=== PATIENT | female | born 1970 | race Caucasian/White ===

== ENCOUNTER 2019-01-09 08:05 | Day surgery (SDC) | payer OTHER ==
[2019-01-02 14:11] VITALS: BMI 26.5
--- NOTE | 2019-01-09 07:34 | OP ---
Operative Note - Note: Operative Date: 01/09/19 Pre-Operative Diagnosis: Left shoulder pain Operation: Left shoulder manipulation under anesthesia Post-Operative Diagnosis: Same as Pre-op Surgeon: Dylon Kraft Sales Representatives: Peggy Iraheta Anesthesia: Fractional Operative Report Dictated: Yes
[2019-01-09] MEDS ORDERED: MIDAZOLAM HCL 2 MG/2 ML SINGLE DOSE VIAL ONE (10:04)
[2019-01-09] MEDS ORDERED: ROPIVACAINE HCL 0.5% 30ML VIAL ONE (10:05)
[2019-01-09] MEDS ORDERED: PROPOFOL 20 ML ONE ×2 (10:52→11:05)
[2019-01-09] MEDS ORDERED: SUCCINYLCHOLINE CHLORIDE 200 MG/10 ML VIAL ONE (10:52)
[2019-01-09] MEDS ORDERED: ONDANSETRON 4 MG/2 ML VIAL ONE (11:16)
[2019-01-09] MEDS ORDERED: LIDOCAINE HCL/PF 2% SDV 5ML VIAL ONE (11:16)
[2019-01-09] MEDS ORDERED: KETOROLAC TROMETHAMINE 30 MG/1 ML VIAL ONE (11:16)
[2019-01-09] MEDS ORDERED: ceFAZolin SODIUM 1 GM VIAL ONE (11:16)
[2019-01-09] MEDS ORDERED: DEXAMETHASONE SOD PHOSPHATE 4 MG/1 ML VIAL ONE (11:16)
[2019-01-09] MEDS ORDERED: ePHEDrine SULFATE 50 MG/1 ML AMPULE ONE (11:39)
[2019-01-09] MEDS ORDERED: ONDANSETRON 4 MG/2 ML VIAL IVPUSH PRN (12:22)
[2019-01-09] MEDS ORDERED: PROMETHAZINE HCL 25 MG/1 ML VIAL IVPUSH PRN (12:22)
[2019-01-09] MEDS ORDERED: oxyCODONE HCL 5 MG TABLET PO PRN ×2 (12:22)
--- NOTE | 2019-01-09 13:17 | OP ---
DATE OF OPERATION: 01/09/2019 PREOPERATIVE DIAGNOSIS: Left shoulder impingement, possible adhesive capsulitis. POSTOPERATIVE DIAGNOSIS: Left shoulder impingement, possible adhesive capsulitis, superior labral tear, subscapularis tendinosis. PROCEDURE: Left shoulder arthroscopy, debridement of subscapularis and superior labrum, subacromial decompression. SURGEON: Dylon Kraft MD DRYING MACHINE OPERATOR PACKAGE YARNS: HEYDI Hardin, whose skillful assistance was necessary for the safe and timely performance of this procedure. Ms. Iraheta was able to provide limb positioning, drive the camera, and assist in the manipulation of our arthroscopic instruments. ANESTHESIA: Regional plus general. POSTOPERATIVE CONDITION: Stable. COMPLICATIONS: None. INDICATIONS: This is a pleasant 48-year-old female who failed to improve with conservative management of her shoulder. Treatment options were discussed, including continued nonoperative versus operative management. Operative risks were reviewed in detail including bleeding, infection, neurovascular injury, need for further surgery, postoperative pain and stiffness, osteoarthritis. We discussed that her MRI overall structurally was good and it is not clear whether any additional structural pathology would be encountered at the time of procedure. I reviewed that recovery is largely dependent on what is encountered inside the shoulder. I discussed medical risks such as heart attack, stroke, DVT, PE, and . I addressed the use of perioperative antibiotic and DVT prophylaxis. I addressed all the patient's questions and concerns. She voiced understanding and elected to proceed. PROCEDURE: The patient was brought to the operating room, where she was placed into the beach chair position, careful to pad all the bony prominences and maintain the cervical spine in neutral alignment. The left upper extremity was examined, demonstrating full range of motion in all planes. She was then prepped and draped in the usual sterile fashion. A preoperative dose of antibiotics was given, and the usual timeout procedure was performed. At this point, the bony landmarks were marked out on the shoulder. A posterior viewing portal was established and the arthroscope was passed to the glenohumeral joint. Examination of the glenoid and humeral surfaces demonstrated only mild superficial articular wear. There was some fraying about the anterior superior labrum. The arthroscope was passed anterior. At the subscapularis superior attachment, there was fraying noted. The arthroscope was passed over the biceps, which appeared intact and without pathology. The supraspinatus and infraspinatus attachments were 100% normal. The anterior portal was now established and a shaver was used to debride the subscapularis. It was now apparent that the majority of the footprint was intact and the area of tendinosis was debrided down to bleeding bone. The superior labrum was debrided down of any loose tissue as well. The arthroscope was now passed into the subacromial space. The subacromial space was noted to have significant tightness to it as well as fraying noted on both the superior surface of the cuff and inferior surface of the acromion. Utilizing the RF probe as well as the mechanical shaver, a subacromial decompression was performed. The rotator cuff was now passed throughout a range of motion of internal and external rotation, and no tear was identified. At this point, the excess fluid was withdrawn from the joint. The portals were sutured using 3-0 nylon. Sterile dressings were placed. The patient was extubated, transferred to the recovery room in stable condition. Johana MCLEAN/[id number]
[2019-01-09] MEDS ORDERED: oxyCODONE HCL 5 MG TABLET ONE (13:28)
[2019-01-09 15:48] VITALS: TEMP 98.5
[2019-01-09 15:52] VITALS: BP 130/78; PULSE 87
== END 2019-01-09 14:30 | disposition home or self-care (01) ==
LOC: FASU 08:05
PROVIDERS: ATTEND Orthopaedic Surgery Sports Medicine
PROC: 0RNK4ZZ Release Left Shoulder Joint, Percutaneous Endoscopic Approach (ICD-10-PCS; principal; 2019-01-09 11:25)
DX: M75.42 Impingement syndrome of left shoulder (principal); M24.112 Other articular cartilage disorders, left shoulder; M75.82 Other shoulder lesions, left shoulder
CPT/HCPCS: 84703; 94760